=== PATIENT | female | born 1980 | race Caucasian/White ===

== ENCOUNTER 2023-01-28 18:24 | Emergency (ER) | payer MEDICAID, SELFPAY ==
[2023-01-28 18:28] VITALS: BP 123/83; PULSE 97; RESP 18; TEMP 36.4; O2SAT 100; BMI 22.8
[2023-01-28 19:13] VITALS: BP 116/91; PULSE 73; RESP 18; TEMP 36.6; O2SAT 98
--- NOTE | 2023-01-28 19:21 | PC.NURSE ---
ice applied to ankle and elevated on bed, pain 8/10 shooting pain
--- NOTE | 2023-01-28 19:26 | CRLHL7_ITS ---
For Patients: As a result of the Century Cures Act, medical imaging exams and procedure reports are released immediately into your electronic medical record. You may view this report before your referring provider. If you have questions, please contact your health care provider. Indication: Left ankle pain. Technique: Left ankle 3 views. Comparison: None. Findings: Bones: No acute fracture or aggressive osseous lesion. Alignment is normal. Small plantar and posterior calcaneal enthesophytes. Joint spaces: Joint spaces are well maintained. No degenerative changes. Soft tissues: Unremarkable. Impression: No evidence of an acute bony abnormality. Dictated by Franky Santos MD @ 01/28/2023 8:29:07 PM (Electronically Signed)
--- NOTE | 2023-01-28 19:26 | ED_ITS ---
HPI - Extremity Injury (Lower) General Chief Complaint: Extremity Pain/Injury, Lower Stated Complaint: ankle injury Time Seen by Provider: 01/28/23 19:01 History of Present Illness HPI Narrative: This 42-year-old female injured her left ankle last evening. She states that it seems worse today. She reports pain across the anterior surface of the left ankle. She does not show any sign of swelling or obvious deformity. She did not have any other injury. Related Data Allergies Allergy/AdvReac Type Severity Reaction Status Date / Time bupropion [From Wellbutrin] Allergy Severe Anxiety Verified 01/28/23 18:32 nickel Allergy Severe Rash Uncoded 01/28/23 18:32 Review of Systems Status of ROS: Reports: 10 or more systems reviewed and unremarkable except as noted in History and below Narrative: Constitutional: No fevers, no weight gain or loss. Eyes: No discharge. No vision changes. HENT: No congestion, no sore throat, no ear pain. Cardiovascular: No chest pain, no palpitations. Respiratory: No shortness of breath, no wheezes, no cough. Gastrointestinal: No abdominal pain, no vomiting, no diarrhea. Genitourinary: No dysuria, no hematuria. Musculoskeletal: Left ankle injury as described above. Skin: No rashes, no pruritis. Neurological: No dizziness, weakness, sensory change, speech change. Endo/Heme/Allergies: No bruising or bleeding. No polydipsia. Pysch: no suicidality, no anxiety, no insomnia. All other systems reviewed and are negative. PFSH PFSH Social History Smoking Status: Current every day smoker Do you use any of these nicotine containing products: None Second hand tobacco smoke exposure: Yes How often do you have a drink containing alcohol: 2-4 times a month AUDIT-C Alcohol total score: 2 Non-prescribed substance use: denies use Exam Narrative: Exam Narrative: Constitutional: Well-developed, well-nourished, no acute distress. HEENT: Normocephalic, atraumatic. Neck: Normal range of motion. Nontender. Supple. Heart: Regular. No murmurs. Normal rate. Intact distal pulses. Lungs: Clear to auscultation. No chest discomfort. No wheezes, rhonchi, or rales. Abdomen: Normal bowel sounds. Nontender. No rebound tenderness. Genitalia: Deferred. Back: No midline tenderness. Normal range of motion. Extremities: Mild swelling of the left ankle diffusely. No sign of effusion or instability. Skin: Intact. No rash. Warm. No erythema or pallor. Neurologic: No altered sensation. No weakness. Alert and oriented. Psychiatric: No suicidality. No anxiety or depression. No insomnia. Nursing notes and vitals signs are reviewed. Const: Vital Signs, click to edit/add: Vital Signs - 24 hr 01/28/23 18:28 01/28/23 19:13 Temperature 97.5 F L 98 F Pulse Rate [Pulse Oximeter] 97 73 Respiratory Rate 18 18 Blood Pressure [[facility]] 123/83 116/91 H Pulse Oximetry 100 98 Oxygen Delivery Me thod Room Air Room Air Course Vital Signs Vital signs: Initial Vital Signs Temperature 97.5 F L 01/28/23 18:28 Temperature Source Temporal Artery Scan 01/28/23 18:28 Pulse Rate 97 01/28/23 18:28 Pulse Rhythm 01/28/23 18:28 Pulse Strength 3+ Normal 01/28/23 18:28 Respiratory Rate 18 01/28/23 18:28 Blood Pressure 123/83 01/28/23 18:28 Blood Pressure Mean 96 01/28/23 18:28 Blood Pressure Position Sitting 01/28/23 18:28 Pulse Oximetry 100 01/28/23 18:28 Oxygen Delivery Method 01/28/23 18:28 Vital Signs Temperature 97.5 F L 01/28/23 18:28 Pulse Rate 97 01/28/23 18:28 Respiratory Rate 18 01/28/23 18:28 Blood Pressure 123/83 01/28/23 18:28 Pulse Oximetry 100 01/28/23 18:28 Oxygen Delivery Method 01/28/23 18:28 Temperature 98 F 01/28/23 19:13 Pulse Rate 73 01/28/23 19:13 Respiratory Rate 18 01/28/23 19:13 Blood Pressure 116/91 H 01/28/23 19:13 Pulse Oximetry 98 01/28/23 19:13 Oxygen Delivery Method 01/28/23 19:13 MDM - Extremity Injury (Lower) MDM Narrative Medical decision making narrative: This patient comes in with her son and significant other. She has an injury to her left ankle that occurred last evening. She is ambulatory on this ankle. X- ray imaging shows no sign of fracture or dislocation. This was reassuring to the patient who is encouraged to continue increasing activity as tolerated. She declined any further treatments or need for crutches. Imaging Data XR L Ankle: Radiologist's impression: No evidence of an acute bony abnormality. Discharge Plan Discharge Clinical Impression: Ankle sprain and strain Patient Disposition: Home, Self-Care Condition: Stable Additional Instructions: Increase activity as tolerated. Use [id number] medicines as needed and directed. Follow up with MD or return if worsening. Follow Up/Referrals: Abbey Dudley PA-C [Primary Care Provider] - Stand Alone Forms: mPATH Info Instructions
== END 2023-01-28 20:43 | disposition home or self-care (01) ==
PROVIDERS: Emergency Provider Emergency Medicine Emergency Medical Services; PCP Physician Assistant Medical
DX: S93.401A Sprain of unspecified ligament of right ankle, initial encounter (principal)
CPT/HCPCS: 73610; 99283; 99284